=== PATIENT | male | born 1980 | race Caucasian/White ===

== ENCOUNTER 2019-12-23 14:08 | Emergency (ER) | payer OTHER ==
[~2019-12-23] VITALS: Ht 190.5 cm; Wt 64.9 kg
[2019-12-23] MEDS ORDERED: CEPHALEXIN MONOHYDRATE 500 MG CAPSULE PO ONE ×2 (14:47→15:00)
[2019-12-23] MEDS ORDERED: SULFAMETH/TRIMETH 800/160 MG 1 UDTAB TABLET ONE (14:48)
[2019-12-23] MEDS ORDERED: IBUPROFEN 600 MG TABLET PO ONE ×2 (14:48→15:00)
--- NOTE | 2019-12-23 14:56 | NUR ---
patient came in to the er c/o "Left Leg Pain- had a tattoo last after that started having body aches/chills/fever/fatique- Tattoo site red/swollen". On room air, breathing evenly and unlabored. kept comfortable, will continue to monitor accordingly.
[2019-12-23] MEDS ORDERED: SULFAMETH/TRIMETH 800/160 MG 1 UDTAB TABLET PO ONE (15:00)
[2019-12-23 16:20] VITALS: BP 120/70
--- NOTE | 2019-12-23 16:21 | NUR ---
Patient discharged to home in stable condition. Written and verbal after care instructions given. Patient verbalizes understanding of instruction.
== END 2019-12-23 16:21 | disposition home or self-care (01) ==
LOC: ER 14:08
DX: L03.116 Cellulitis of left lower limb (principal); Z98.890 Other specified postprocedural states; Z60.2 Problems related to living alone
CPT/HCPCS: 93971-TC